=== PATIENT | male | born 1965 | race Caucasian/White ===

== ENCOUNTER 2021-01-24 08:51 | Day surgery (SDC) | payer OTHER ==
[2021-01-22 10:29] VITALS: BMI 28.3
[~2021-01-24 08:51] MED LIST: LACTATED RINGERS 1,000 ML IV SCH
[2021-01-24 09:12] VITALS: RESP 16; TEMP 97.5
[2021-01-24] MEDS ORDERED: LIDOCAINE 1% (10MG/ML) FOR IV START INTRADERMA ONE (09:17)
[2021-01-24 09:19] LABS: Glucose,Whole Blood 185 mg/dL (75-99)
[2021-01-24] MEDS ORDERED: LIDOCAINE 1% INJ 10MG/ML (20 ML MDV) ONE (09:53)
[2021-01-24] MEDS ORDERED: PROPOFOL 10 MG/ML 20 ML VIAL IV ONE (09:53)
--- NOTE | 2021-01-24 10:08 | P.PCN ---
Date of Procedure: 01/24/21 Procedure(s) Performed: BRIEF HISTORY: Patient is a 55-year-old pleasant male scheduled for an elective colonoscopy as a part of evaluation of Hemoccult-positive stool. PROCEDURE PERFORMED: Colonoscopy with snare polypectomy. PREOPERATIVE DIAGNOSIS: Occult blood in the stool. IV sedation per Anesthesia. PROCEDURE: After informed consent was obtained, the patient, was brought into the endoscopy unit. IV sedation was administered by Anesthesia under continuous monitoring. Digital rectal examination was normal. Initially the Olympus CF-160 flexible video colonoscope was then inserted in the rectum, gradually advanced into the cecum without any difficulty. Careful examination was performed as the scope was gradually being withdrawn. Ileocecal valve and the appendiceal orifice were visualized and appeared normal. Prep was excellent. Mucosa of the cecum appeared normal. Ascending colon there was a 5 mm sessile polyp removed by snare polypectomy. In the transverse colon there was a 2 mm polyp removed by snare polypectomy. Rest of the, ascending colon, transverse colon, descending colon, appeared normal. In the sigmoid colon there was a 1 cm polyp removed by snare polypectomy. Scattered sigmoid diverticulosis seen. Rest of the sigmoid colon, and rectum appeared normal. Retroflexion was performed in the rectum and no lesions were seen. The patient tolerated the procedure well. IMPRESSION: 5 mm ascending colon polyp status post polypectomy 2 mm transverse colon polyp status post polypectomy 1 cm; polyp status post polypectomy RECOMMENDATIONS: Findings of this examination were discussed with the patient as well as his family. He was advised to follow with the biopsy results. If the biopsy shows an adenoma he can have a repeat colonoscopy in 3 years
[2021-01-24 10:32] VITALS: BP 115/72; PULSE 91
== END 2021-01-24 10:55 | disposition home or self-care (01) ==
LOC: ORWHC2ENDO 08:51
PROVIDERS: ATTEND Internal Medicine Gastroenterology
DX: D12.3 Benign neoplasm of transverse colon (principal); K63.5 Polyp of colon; K57.30 Diverticulosis of large intestine without perforation or abscess without bleeding; R19.5 Other fecal abnormalities; E11.9 Type 2 diabetes mellitus without complications; Z79.84 Long term (current) use of oral hypoglycemic drugs; Z79.899 Other long term (current) drug therapy; Z87.442 Personal history of urinary calculi; Z88.2 Allergy status to sulfonamides
CPT/HCPCS: 88305; 45385; J2001; J2704

== ENCOUNTER 2021-09-12 08:03 | Day surgery (SDC) | payer OTHER ==
[2021-09-10 13:29] VITALS: BMI 29.2
--- NOTE | 2021-09-11 09:31 | HP ---
HISTORY AND PHYSICAL CHIEF COMPLAINT: Right index finger pain and locking. HISTORY OF PRESENT ILLNESS: Patient is a 56-year-old male who presents with progressive right index finger pain and locking for the past year. He notes it is worse in the morning. He has a difficult time with gripping and grasping. He also notes stiffness. He has tried previous injections with only partial temporary relief. PAST MEDICAL HISTORY: Significant for type 2 diabetes and hypertension. PAST SURGICAL HISTORY: Carpal tunnel release, knee surgery and oral surgery. CURRENT MEDICATIONS: None. ALLERGIES: HE HAS ALLERGIES TO BACTRIM. FAMILY HISTORY: Significant for cancer and liver disease. SOCIAL HISTORY: Significant for previous tobacco use. REVIEW OF SYSTEMS: Sixteen-point review of systems otherwise reviewed and is noncontributory. PHYSICAL EXAMINATION: On examination, patient is approximately 5 foot 11, 204 pounds of endomorphic habitus. HEENT exam is nonfocal. Neck is supple. He is nontender about the right shoulder elbow and wrist. On examination of his right hand, he is tender over the index finger A1 kate with palpable triggering and catching. He has moderate stiffness. He fires the FDP and FDS. His distal neurovascular exam appears intact. IMPRESSION: Right index trigger finger-symptomatic. RECOMMENDATIONS: I talked to the patient at length regarding his condition along with treatment options. At this point, remains quite symptomatic despite conservative measures. After thorough discussion, he opts to proceed with surgery. We will plan to proceed with the right index trigger finger release. We will likely perform that as an outpatient procedure utilizing local anesthetic and IV sedation. MMODL / IJN: [id number] /
[~2021-09-12 08:03] MED LIST changes: +DEXAMETHASONE SOD PHOSPHATE 4 MG/ML 1 ML VIAL IV ONE; +HYDROmorphone 0.5 MG/0.5 ML SYRINGE IVP PRN; +MIDAZOLAM 2 MG/2 ML VIAL IV PRN; +ONDANSETRON 4 MG/2 ML VIAL IVP ONE; +SCOPOLAMINE 1.5MG/72HR PATCH TRANSDERM ONE
[2021-09-12 08:21] VITALS: TEMP 97.7
[2021-09-12 08:31] LABS: Glucose,Whole Blood 230 mg/dL (75-99)
[2021-09-12] MEDS ORDERED: PROPOFOL 10 MG/ML 20 ML VIAL IV ONE (09:37)
[2021-09-12] MEDS ORDERED: .fentaNYL (PF) 50 MCG/ML 2 ML AMP ONE (09:37)
[2021-09-12] MEDS ORDERED: MIDAZOLAM 2 MG/2 ML VIAL ONE (09:37)
[2021-09-12] MEDS ORDERED: BUPIVACAINE (PF) 0.25% 30 ML VIAL SQ ONE (09:50)
--- NOTE | 2021-09-12 10:06 | P.OP ---
Date of Procedure: 09/12/21 Preoperative Diagnosis: Symptomatic right index trigger finger Postoperative Diagnosis: Same Procedure(s) Performed: Right index trigger finger release Anesthesia: MAC, local Surgeon: Eric Nava Estimated Blood Loss (ml): 1 Pathology: none sent Condition: stable Disposition: PACU Indications for Procedure: The patient's a 56-year-old male who presents with progressive right index finger pain and locking despite previous conservative measures. A discussion of the risks and benefits of operative intervention versus continued conservative measures was made with patient. He opted to proceed with surgery. Operative risks to include infection, neurovascular injury, possible recurrence need for subsequent procedures was discussed. Informed consent was obtained. Operative Findings: As below Description of Procedure: The patient was brought to the operating room, and after induction of IV sedation the right upper extremity was prepped and draped in normal fashion. The proposed incision site was outlined along the volar aspect the right hand over the index finger proximal to the MCP joint crease. 5 mL of quarter percent plain Marcaine was injected. The tourniquet was inflated to 250 mm marker. The 1 cm incision was then made. Skin was incised sharply. Subcu change tissues were divided bluntly. The neurovascular bundles were gently retracted. The A1 kate of the index finger flexor sheath was identified and transected under direct visualization proximally and distally. The tendon was then mobilized. I felt there was adequate release. The wound was irrigated normal saline. The skin was reprepped with simple 3-0 nylon suture. A sterile dressing was applied. The tourniquet was deflated less than 10 minutes total tourniquet time. The patient was awoken from sedation and transferred to recovery room in good condition. Blood loss was estimated at 1 mL. No complications were incurred. Sponge and needle counts were correct at the of end the case.
[2021-09-12 10:14] VITALS: RESP 16
[2021-09-12 10:34] VITALS: BP 113/81; PULSE 79
== END 2021-09-12 10:45 | disposition home or self-care (01) ==
LOC: OR 08:03
PROVIDERS: ATTEND Orthopaedic Surgery
DX: M65.321 Trigger finger, right index finger (principal); E11.9 Type 2 diabetes mellitus without complications; I10 Essential (primary) hypertension; Z98.890 Other specified postprocedural states; Z88.2 Allergy status to sulfonamides; Z83.79 Family history of other diseases of the digestive system; Z80.9 Family history of malignant neoplasm, unspecified; Z87.891 Personal history of nicotine dependence; E78.5 Hyperlipidemia, unspecified; K21.9 Gastro-esophageal reflux disease without esophagitis; Z79.84 Long term (current) use of oral hypoglycemic drugs; Z79.1 Long term (current) use of non-steroidal anti-inflammatories (NSAID); Z79.899 Other long term (current) drug therapy
CPT/HCPCS: 26055; J2250; J0690; J2405; J3010; J2704

== ENCOUNTER 2022-07-13 16:05 | Emergency (ER) | payer OTHER ==
[2022-07-13 17:10] VITALS: BP 159/94; PULSE 76; RESP 18; TEMP 97.6
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
--- NOTE | 2022-07-13 18:07 | XR ---
EXAMINATION TYPE: XR clavicle RT DATE OF EXAM: 07/13/2022 COMPARISON: NONE HISTORY: Pain TECHNIQUE: 2 view FINDINGS: There is midshaft fracture of the right clavicle with comminution. There is overriding of t he fragments approximately 4 cm. The AC joint is anatomic. Scapula appears intact. IMPRESSION: Subacute displaced clavicle fracture with overriding fragments.
[2022-07-13] MEDS ORDERED: KETOROLAC 15 MG/ML 1 ML VIAL IM STA (19:03)
[2022-07-13] MEDS ORDERED: HYDROmorphone 1 MG/ML 1 ML SYRINGE IM STA (19:03)
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
[2022-07-13] MEDS ORDERED: ACET/COD 300 MG/30 MG STARTER PACK 6 TAB BTL PO STA (20:03)
== END 2022-07-13 20:17 | disposition home or self-care (01) ==
LOC: EC 16:05
DX: S42.001A Fracture of unspecified part of right clavicle, initial encounter for closed fracture (principal); S22.39XA Fracture of one rib, unspecified side, initial encounter for closed fracture; E11.9 Type 2 diabetes mellitus without complications; K21.9 Gastro-esophageal reflux disease without esophagitis; E78.5 Hyperlipidemia, unspecified; I10 Essential (primary) hypertension; Z87.891 Personal history of nicotine dependence; Z88.2 Allergy status to sulfonamides; Z79.84 Long term (current) use of oral hypoglycemic drugs; V18.0XXA Pedal cycle driver injured in noncollision transport accident in nontraffic accident, initial encounter
CPT/HCPCS: 73000; 71046; 99284; 96372 ×2; J1170; J1885

== ENCOUNTER 2022-07-27 14:00 | Day surgery (SDC) | payer OTHER ==
[2022-07-24 10:10] VITALS: BMI 29.2
[2022-07-27 14:37] LABS: Glucose,Whole Blood 144 mg/dL (70-110)
[2022-07-27 14:42] VITALS: RESP 16
[2022-07-27] MEDS ORDERED: LACTATED RINGERS 1,000 ML IV ONE (14:42)
[2022-07-27 14:52] LABS: Basophils # (A) 0.1 k/uL (0-0.2); Basophils % (A) 1 %; Eosinophils # (A) 0.1 k/uL (0-0.7); Eosinophils % (A) 2 %; HCT 43.1 % (39.0-53.0); HGB 15.1 gm/dL (13.0-17.5); Lymphocytes # (A) 1.6 k/uL (1.0-4.8); Lymphocytes % (A) 29 %; MCHC 35.1 g/dL (31.0-37.0); MCV 91.2 fL (80.0-100.0); Mean Platelet Volume 7.8; Monocytes # (A) 0.3 k/uL (0-1.0); Monocytes % (A) 5 %; Neutrophils # (A) 3.4 k/uL (1.3-7.7); Neutrophils % (A) 61 %; Platelet Count 351 k/uL (150-450); RBC 4.72 m/uL (4.30-5.90); RDW 12.2 % (11.5-15.5); WBC 5.7 k/uL (3.8-10.6)
[2022-07-27] MEDS ORDERED: ONDANSETRON 4 MG/2 ML VIAL ONE (14:56)
[2022-07-27] MEDS ORDERED: DEXAMETHASONE SOD PHOSPHATE 4 MG/ML 1 ML VIAL IVP ONE (15:00)
[2022-07-27] MEDS ORDERED: ONDANSETRON 4 MG/2 ML VIAL IVP ONE (15:01)
[2022-07-27] MEDS ORDERED: MIDAZOLAM 2 MG/2 ML VIAL IVP ONE (15:09)
[2022-07-27] MEDS ORDERED: fentaNYL (PF) 50 MCG/ML 2 ML AMP IVP ONE (15:10)
--- NOTE | 2022-07-27 15:27 | P.ANPRN ---
Procedure Note - Anesthesia - Nerve Block Performed Right Superficial Cervical Plexus Block Single Time Out Performed: Yes Date of Procedure: 07/27/22 Procedure Start Time: 15:08 Procedure Stop Time: 15:13 Location of Patient: PreOp Indication: Requested by Surgeon Specifically requested for management of pain by DrAkila: Nathan Yao Sedation Type: Sedate with meaningful contact maintained Preparation: Sterile Prep Position: Supine Needle Types: Pajunk Needle Gauge: 21 Ultrasound used to visualize needle placement: Yes Ultrasound used to observe medication spread: Yes Injectate: 0.5% Ropivacaine (see comment for volume) (10 ml + 10 ml NS +4 mg dexamethasone) Blood Aspirated: No Pain Paresthesia on Injection Noted: No Resistance on Injection: Normal Image Stored and Saved: Yes Events: Uneventful and Well Tolerated
[2022-07-27 16:24] LABS: Potassium 4.2 mmol/L (3.5-5.1)
[2022-07-27] MEDS ORDERED: LIDOCAINE 2% INJ 20 MG/ML (2 ML VIAL) ONE (17:07)
[2022-07-27] MEDS ORDERED: HYDROmorphone (PF) 1 MG/ML ONE (17:07)
[2022-07-27] MEDS ORDERED: ROCURONIUM 10 MG/ML (5 ML VIAL) IV ONE (17:07)
[2022-07-27] MEDS ORDERED: ROPIVACAINE 5 MG/ML 30 ML VIAL ONE (17:07)
[2022-07-27] MEDS ORDERED: NEOSTIGMINE 1 MG/ML 10 ML VIAL ONE (17:07)
[2022-07-27] MEDS ORDERED: SUCCINYLCHOLINE CHLORIDE 200 MG/10 ML VIAL IV ONE (17:07)
[2022-07-27] MEDS ORDERED: fentaNYL (PF) 50 MCG/ML 2 ML AMP ONE (17:07)
[2022-07-27] MEDS ORDERED: MIDAZOLAM 2 MG/2 ML VIAL ONE (17:07)
[2022-07-27] MEDS ORDERED: PROPOFOL 10 MG/ML 20 ML VIAL IV ONE (17:07)
[2022-07-27] MEDS ORDERED: GLYCOPYRROLATE 0.2 MG/ML 2 ML VIAL ONE (17:07)
[2022-07-27] MEDS ORDERED: SODIUM CHLORIDE 0.9% (PF) 10 ML VIAL ONE (17:07)
[2022-07-27] MEDS ORDERED: DEXAMETHASONE SOD PHOSPHATE 4 MG/ML 1 ML VIAL ONE (17:07)
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
[2022-07-27 19:32] VITALS: TEMP 96.8
[2022-07-27] MEDS ORDERED: HYDROmorphone 1 MG/ML 1 ML SYRINGE IVP PRN (19:38)
[2022-07-27] MEDS ORDERED: HYDROmorphone 0.5 MG/0.5 ML SYRINGE IVP PRN ×2 (19:38)
[2022-07-27] MEDS ORDERED: hydrOXYzine pamoate 25 MG CAP PO PRN (19:38)
[2022-07-27] MEDS ORDERED: HYDROmorphone 0.5 MG/0.5 ML SYRINGE IVP ONE ×3 (19:38→20:16)
[2022-07-27] MEDS ORDERED: SENNOSIDES-DOCUSATE SODIUM 1 EACH TAB PO PRN (19:38)
[2022-07-27] MEDS ORDERED: oxyCODONE-APAP 5-325MG 1 EACH TAB PO PRN (19:41)
[2022-07-27] MEDS ORDERED: KETOROLAC 15 MG/ML 1 ML VIAL IVP ONE ×2 (20:03)
[2022-07-27] MEDS ORDERED: ROPIVACAINE 5 MG/ML 30 ML VIAL MISCELLANE ONE (21:00)
[2022-07-27 21:50] LABS: Glucose,Whole Blood 265 mg/dL (70-110)
[2022-07-27 22:22] VITALS: BP 171/90; PULSE 100
--- NOTE | 2022-07-28 07:18 | XR ---
Intraoperative/procedural fluoroscopic services were provided for ORIF right clavicle. Total fluorosc opy time is 21.3 seconds with a total of 3 submitted images to PACS. Please see the operative note fo r further details.
== END 2022-07-27 22:22 | disposition home or self-care (01) ==
LOC: OR 14:00
PROVIDERS: ATTEND Orthopaedic Surgery
DX: S42.021A Displaced fracture of shaft of right clavicle, initial encounter for closed fracture (principal); G89.18 Other acute postprocedural pain; I10 Essential (primary) hypertension; E78.5 Hyperlipidemia, unspecified; Z87.891 Personal history of nicotine dependence; E11.9 Type 2 diabetes mellitus without complications; J44.9 Chronic obstructive pulmonary disease, unspecified; G47.33 Obstructive sleep apnea (adult) (pediatric); K21.9 Gastro-esophageal reflux disease without esophagitis; N20.0 Calculus of kidney; Z88.2 Allergy status to sulfonamides; Z79.899 Other long term (current) drug therapy
CPT/HCPCS: 23515; 80051; 85025; 73000; 64999; J2250; J1100; J0690; J2405; J3010; J2795; J1885; J1170; 64415; 76942

== ENCOUNTER 2022-09-04 14:17 | Emergency (ER) | payer OTHER ==
[2022-09-04 14:25] VITALS: BP 148/96; PULSE 91; RESP 20; TEMP 98.4
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
[2022-09-04] MEDS ORDERED: KETOROLAC 15 MG/ML 1 ML VIAL IM STA (16:05)
[2022-09-04] MEDS ORDERED: HYDROcodone/APAP 5-325MG 1 EACH TAB PO STA (16:05)
[2022-09-04] MEDS ORDERED: LIDOCAINE 1% INJ 10MG/ML (30 ML VIAL-PF) SQ ONE (16:06)
[2022-09-04] MEDS ORDERED: BACITRACIN OINT 1 EACH PACKET TOPICAL ONE (16:06)
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
[2022-09-04] MEDS ORDERED: ACET/COD 300 MG/30 MG STARTER PACK 6 TAB BTL PO STA (17:34)
[2022-09-04] MEDS ORDERED: CEPHALEXIN 500 MG CAP PO STA (17:34)
== END 2022-09-04 17:47 | disposition home or self-care (01) ==
LOC: EC 14:17
DX: S61.212A Laceration without foreign body of right middle finger without damage to nail, initial encounter (principal); J44.9 Chronic obstructive pulmonary disease, unspecified; E11.9 Type 2 diabetes mellitus without complications; I10 Essential (primary) hypertension; K21.9 Gastro-esophageal reflux disease without esophagitis; Z87.891 Personal history of nicotine dependence; Z88.2 Allergy status to sulfonamides; Z79.84 Long term (current) use of oral hypoglycemic drugs; Z79.899 Other long term (current) drug therapy; W23.1XXA Caught, crushed, jammed, or pinched between stationary objects, initial encounter
CPT/HCPCS: 73130; 99283; 96372; 12002; J2001; J1885

== ENCOUNTER → 2023-08-16 | Outpatient (CLI) | payer OTHER ==
--- NOTE | 2023-08-16 19:36 | MR ---
EXAMINATION TYPE: MR cervical spine wo con DATE OF EXAM: 08/16/2023 7:27 PM CLINICAL INDICATION:Male, 58 years old with history of M54.2 CERVICALGIA; PHH, Neck pain, left hand n umbness COMPARISON: 07/05/2023. TECHNIQUE: Multi planar, multi sequence imaging was performed utilizing: T1-weighted, T2-weighted, an d turbo inversion recovery imaging of the cervical spine. IV Contrast: cc (none if empty) FINDINGS: Alignment: The cervical vertebral bodies have preserved heights. Alignment is within normal limits gi blaine patient positioning. Bones: Multilevel degeneration changes throughout the spine worse at C5-C6 and C6-C7. Cord: Abnormal cord signal at the level of C5-C6 asymmetry left and posterior. Series 701 image 26. Discs: Multilevel disc desiccation is present. C2-C3: No significant disc pathology. The spinal canal is patent. No neural foraminal stenosis. C3-C4: No significant disc pathology. The spinal canal is patent. No neural foraminal stenosis. C4-C5: No significant disc pathology. The spinal canal is patent. Bilateral facet and uncovertebral joint arthropathy are present with mild bilateral neural foraminal stenosis. C5-C6: Disc osteophyte can complex with severe spinal canal stenosis and cord signal change. Facet hilda int uncovertebral joint arthropathy with severe right and moderate to severe left neural foraminal st enosis. C6-C7: A disc osteophyte complex is present with moderate spinal canal stenosis. No neural foraminal stenosis. C7-T1: No significant disc pathology. The spinal canal is patent. No neural foraminal stenosis. Other: None. IMPRESSION: Through C5-C6 severe spinal canal stenosis with abnormal cord signal. Additionally there is severe ri ght and moderate severe left neural foraminal stenosis. Cord signal abnormality in the posterior left aspect of the spinal cord. Ordering provider was not in the power scribe communication system to be notified.
== END | disposition home or self-care (01) ==
LOC: RADMRIMAIN 18:12
PROVIDERS: ATTEND Orthopaedic Surgery Hand Surgery
DX: M48.02 Spinal stenosis, cervical region (principal); M99.71 Connective tissue and disc stenosis of intervertebral foramina of cervical region
CPT/HCPCS: 72141

== ENCOUNTER → 2024-01-13 | Outpatient (CLI) | payer OTHER ==
[2024-01-13 15:57] LABS: Basophils # (A) 0.06 X 10*3/uL (0.00-0.10); Basophils % (A) 1.2 %; Eosinophils # (A) 0.13 X 10*3/uL (0.04-0.35); Eosinophils % (A) 2.5 %; HCT 48.9 % (39.6-50.0); HGB 16.7 g/dL (13.0-17.0); Lymphocytes # (A) 1.55 X 10*3/uL (0.90-5.00); Lymphocytes % (A) 30.2 %; MCH 30.9 pg (27.0-32.0); MCHC 34.2 g/dL (32.0-37.0); MCV 90.6 FL (80.0-97.0); Mean Platelet Volume 11.6 FL (9.5-12.2); Monocytes # (A) 0.35 X 10*3/uL (0.20-1.00); Monocytes % (A) 6.8 %; NRBC Per 100 WBC 0 X 10*3/uL (0.00-0.01); Neutrophils # (A) 3.02 X 10*3/uL (1.80-7.70); Neutrophils % (A) 58.9 %; Platelet Count 215 X 10*3/uL (140-440); RBC Morphology Normal (Normal); RDW 11.9 % (11.5-14.5); WBC 5.13 X 10*3/uL (4.50-10.00)
[2024-01-13 15:58] LABS: ALT 15 U/L (10-49); AST 18 U/L (14-35); Albumin 4.3 g/dL (3.8-4.9); Albumin/Globulin Ratio 1.65 Ratio (1.60-3.17); Alkaline Phosphatase 101 U/L (41-126); Calcium 9.5 mg/dL (8.7-10.3); Carbon Dioxide 23.1 mmol/L (21.6-31.8); Chloride 100 mmol/L (96-109); Chol/HDL Ratio 5.71 Ratio; Globulin 2.6 g/dL (1.6-3.3); Glucose 283 mg/dL (70-110); LDL Cholesterol,Calculated 187.8 mg/dL (0.0-131.0); Potassium 4.7 mmol/L (3.5-5.5); Sodium 135 mmol/L (135-145); T4, Free (Free Thyroxine) 0.97 ng/dL (0.80-1.80); Total Bilirubin 0.3 mg/dL (0.3-1.2); Total Protein 6.9 g/dL (6.2-8.2)
[2024-01-13 16:09] LABS: INR <0.93 sec (0.93-1.11); Prothrombin Time 9.8 sec (9.9-11.9)
[2024-01-13 16:16] LABS: Appearance,Urine Clear (Clear); Bilirubin,Urine Negative (Negative); Blood,Urine Negative (Negative); Color,Urine Yellow (Yellow); Ketones,Urine Negative (Negative); Nitrite,Urine Negative (Negative); PH, Urine 7.5; Specific Gravity,Urine 1.028 (1.001-1.030); Urobilinogen,Urine 0.2 E.U./DL
[2024-01-13 20:46] LABS: Urine Creatinine 58.6 mg/dL (39.0-259.0)
[2024-01-14 21:14] LABS: Vitamin D, 1, 25-Dihydroxy 64 pg/mL (20 - 79)
== END | disposition home or self-care (01) ==
LOC: LABWHC1 09:54
PROVIDERS: ATTEND Family Medicine
DX: I10 Essential (primary) hypertension (principal); E11.65 Type 2 diabetes mellitus with hyperglycemia; E78.5 Hyperlipidemia, unspecified; E55.9 Vitamin D deficiency, unspecified; N20.0 Calculus of kidney; R35.1 Nocturia
CPT/HCPCS: 36415; 80053; 80061; 81003; 82043; 82570; 82652; 84153; 84439; 84443; 85025; 85610

== ENCOUNTER → 2024-02-16 | Outpatient (CLI) | payer OTHER | END | disposition home or self-care (01) | LOC: LABPAT 15:51 | PROVIDERS: ATTEND Orthopaedic Surgery | DX: Z01.812 Encounter for preprocedural laboratory examination (principal); Z22.322 Carrier or suspected carrier of Methicillin resistant Staphylococcus aureus; M54.2 Cervicalgia; M54.12 Radiculopathy, cervical region | CPT/HCPCS: 86850; 86900; 86901; 87070 ==

== ENCOUNTER 2024-02-24 05:45 | Day surgery (SDC) | payer OTHER ==
[2024-02-17 17:44] VITALS: BMI 30.4
[~2024-02-24 05:45] MED LIST changes: -DEXAMETHASONE SOD PHOSPHATE 4 MG/ML 1 ML VIAL IV ONE; -HYDROmorphone 0.5 MG/0.5 ML SYRINGE IVP PRN; -LACTATED RINGERS 1,000 ML IV SCH; +LIDOCAINE 1% (10MG/ML) FOR IV START INTRADERMA PRN; -MIDAZOLAM 2 MG/2 ML VIAL IV PRN; -ONDANSETRON 4 MG/2 ML VIAL IVP ONE; +ONDANSETRON 4 MG/2 ML VIAL IVP PRN; -SCOPOLAMINE 1.5MG/72HR PATCH TRANSDERM ONE; +TRANEXAMIC 1,000 MG/100ML-NACL 1,000 MG in SALINE 1 100ML.BAG IVPB PRN; +droPERidol 5 MG/2 ML VIAL IVP ONE
[2024-02-24 06:40] LABS: Glucose,Whole Blood 205 mg/dL (70-110)
[2024-02-24] MEDS: LACTATED RINGERS 1,000 ML IV SCH (06:42)
[2024-02-24] MEDS: DEXAMETHASONE SOD PHOSPHATE 4 MG/ML 1 ML VIAL IV ONE (06:48)
[2024-02-24] MEDS: ONDANSETRON 4 MG/2 ML VIAL IVP ONE (06:48)
[2024-02-24] MEDS: GABAPENTIN 300 MG CAP PO PRN (06:50)
[2024-02-24] MEDS: ACETAMINOPHEN TAB 500 MG TAB PO PRN (06:50)
[2024-02-24] MEDS: SCOPOLAMINE 1 MG/72 HR PATCH TRANSDERM ONE (06:51)
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
[2024-02-24] MEDS: diphenhydrAMINE 50 MG/ML 1 ML VIAL ONE (07:10)
[2024-02-24] MEDS ORDERED: KETAMINE HCL IN 0.9 % NACL 50 MG/5 ML SYRINGE ONE (07:30)
[2024-02-24] MEDS ORDERED: MIDAZOLAM 2 MG/2 ML VIAL ONE (07:30)
[2024-02-24] MEDS ORDERED: LIDOCAINE 1% INJ 10MG/ML (20 ML MDV) ONE (07:30)
[2024-02-24] MEDS ORDERED: NEOSTIGMINE 1 MG/ML 10 ML VIAL ONE (07:30)
[2024-02-24] MEDS ORDERED: ROCURONIUM 10 MG/ML (5 ML VIAL) IV ONE (07:30)
[2024-02-24] MEDS ORDERED: SUCCINYLCHOLINE CHLORIDE 200 MG/10 ML VIAL IV ONE (07:30)
[2024-02-24] MEDS ORDERED: GLYCOPYRROLATE 0.2 MG/ML 2 ML VIAL ONE (07:30)
[2024-02-24] MEDS ORDERED: PHENYLEPHRINE 10 MG/ML VIAL ONE (07:30)
[2024-02-24] MEDS ORDERED: PROPOFOL 10 MG/ML 20 ML VIAL IV ONE (07:30)
[2024-02-24] MEDS ORDERED: TRANEXAMIC 1,000 MG/100ML-NACL PREMIX BAG ONE (07:30)
[2024-02-24] MEDS ORDERED: fentaNYL (PF) 50 MCG/ML 2 ML AMP ONE (07:30)
[2024-02-24] MEDS ORDERED: KETOROLAC 30 MG/ML 1 ML VIAL ONE (07:30)
[2024-02-24] MEDS ORDERED: DEXAMETHASONE SOD PHOSPHATE 10 MG/ML 1 ML VIAL ONE (07:30)
[2024-02-24] MEDS: GELATIN SPONGE,ABSORB (LARGE) 1 EACH SPONGE MISCELLANE ONE (08:17)
[2024-02-24] MEDS: THROMBIN (BOVINE) 5,000 UNIT VIAL TOPICAL ONE (08:18)
--- NOTE | 2024-02-24 10:16 | FL ---
EXAMINATION TYPE: FL guidance operating room, XR cervical spine 1V Intraoperative/procedural fluorosc opic services were provided. Total fluoroscopy time is 24.1 seconds with a total of 5 submitted image s to PACS. Please see the operative/procedural note for further details. DAP: 0.49 4 Gycm2
[2024-02-24] MEDS ORDERED: HYDROmorphone 1 MG/ML 1 ML SYRINGE IVP PRN (10:26)
[2024-02-24] MEDS ORDERED: HYDROcodone/APAP 5-325MG 1 EACH TAB PO PRN (10:26)
[2024-02-24] MEDS ORDERED: KETOROLAC 15 MG/ML 1 ML VIAL IVP PRN (10:26)
[2024-02-24] MEDS ORDERED: ONDANSETRON 4 MG/2 ML VIAL IVP PRN (10:26)
[2024-02-24] MEDS ORDERED: CYCLOBENZAPRINE 10 MG TAB PO PRN (10:26)
[2024-02-24] MEDS ORDERED: HYDROcodone/APAP 10-325MG 1 EACH TAB PO PRN (10:26)
[2024-02-24] MEDS ORDERED: HYDROmorphone 0.5 MG/0.5 ML SYRINGE IVP PRN (10:26)
[2024-02-24] MEDS ORDERED: MAGNESIUM HYDROXIDE 2,400 MG/30 ML CUP PO PRN (10:26)
[2024-02-24] MEDS ORDERED: HYDROcodone/APAP 7.5-325MG 1 EACH TAB PO PRN (10:29)
--- NOTE | 2024-02-24 10:33 | P.OP ---
Date of Procedure: 02/24/24 Preoperative Diagnosis: 1. 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 CERVICAL MYELOMALACIA WITH MYELOPATHY 3. BUE RADICULOPATHY 4. BUE WEAKNESS 5. NECK PAIN Postoperative Diagnosis: 1. 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 CERVICAL MYELOMALACIA WITH MYELOPATHY 3. BUE RADICULOPATHY 4. BUE WEAKNESS 5. NECK PAIN Procedure(s) Performed: 1. C5-6 ANTERIOR CERVICAL ARTHRODESIS 2. C6-7 ANTERIOR CERVICAL ARTHRODESIS 3. ANTERIOR INSTRUMENTATION C5-7 4. INSERTION OF BIOMECHANICAL DEVICE C5-6 AND C6-7 USE OF IONM Implants: CARMEN CASCADIA CAGE 9MM 9MM OZARK PLATE 46MM 16MM SCREWS MAGNATOS, AUTOGRAFT Anesthesia: PAMELAA Surgeon: Guero Mullen Visual Developer #1: Edy Maguire (WAS PRESENT AND ASSISTED WITH ALL ASPECTS OF THE CASE FROM POSITION TO CLOSURE) Estimated Blood Loss (ml): 25 IV fluids (ml): 1,200 Urine output (ml): 0 Pathology: none sent Condition: stable Disposition: PACU Indications for Procedure: Mr. Tamayo is presenting for evaluation of neck pain. It was my pleasure to have seen and examined Mr. Tamayo. In our visit today we have had a chance to go over subjective complaints, physical examination findings and treatments including the natural course history without intervention and various interventional options. The patients imaging demonstrates: XRay Cervical multiview (Lateral, Flexion, Extension, AP, Oblique) 6 views taken at [facility] on 08/23/23: - Re-reviewed in office today. Mild to moderate multilevel spondylitic and degenerative changes with straightening of the normal lordosis. Multilevel diminished disc height, most pronounced C5-C7 with foraminal narrowing. Vertebral body heights are preserved. No acute osseous abnormalities. [facility] 08/16/23 [facility]: - Re-reviewed in office today. IMPRESSION: Through C5-C6 severe spinal canal stenosis with abnormal cord signal. Additionally there is severe right and moderate severe left neural foraminal stenosis. Cord signal abnormality in the posterior left aspect of the spinal cord. On physical exam, Mr. Tamayo demonstrates: A burning, ache-like pain throughout the neck that radiates down into the left upper extremity. He notes his left arm pain is associated with numbness and tingling. He notes severe numbness throughout the third, fourth, and fifth digits upon the left hand. The patient states his current symptoms worsen after all activity. He reports experiencing severe sleep disturbances related to his ongoing pain and associated symptoms. I have explained to the patient that as their condition progresses it will cause further neurological deficits and eventual paralysis. Based on the patients imaging, physical exam, and the rapid progression and disabling nature of their symptoms, at this time I recommend surgery in the form of a: C5-7 ACDF. I discussed the risk and benefits of this procedure at length with Mr. Tamayo. The patient agreed to considered pursuing the procedure abovementioned. Prior to surgery, she should follow up with her PCP (Cardio, ID, IM etc) for clearance. Questions were invited and answered, and the patient wishes to proceed as outlined below. Currently, I am recommendin.C5-7 ANTERIOR CERVICAL DISCECOMTY AND FUSION Description of Procedure: C5-7 ACDF The patient was seen and examined in the preoperative area. All preoperative protocols were followed. Informed consent was obtained, risks and benefits of the procedure were discussed at length. Risks including bleeding infection damage to the surrounding tissue and risk of reoperation were discussed with the patient. Risk of anesthesia up to and including was discussed with the patient. These are outlined in the risk review. They were willing to accept these risks and all the risks of surgery. The patient was given a weight-based dose of antibiotics in the form of 2 g Ancef. The patient was seen and evaluated by the anesthesia team who deemed them fit for surgery. The site was marked, the patient was willing to proceed with the procedure. The patient was transferred to the operative suite by the Department of anesthesia. They were then drifted off to sleep by the department anesthesia and GETA was performed. The patient tolerated this well. Cunha catheter was placed by nursing staff, a-traumatically. Once confirmation of lines and ventilation the patient was transferred to a Supine Yves table very carefully. All bony prominences including wrists, elbows, axilla, chest, hips, and thighs, and feet were padded very well. Special attention was paid to the genitalia, and these were padded accordingly. SCDs were placed on bilateral lower extremities and were connected. Arms were well padded and placed at their side thumbs up. Once in position, again we confirmed good ventilation capabil ities and that lines were running appropriately. The patients Cervical spine was then exposed. 1010s were placed outlining the incision site. Standard alcohol was used to clean the incision site and allowed to dry. C-arm was used to bio-monisha the patient and confirm level for incision which was marked with a skin marker. Operative briefing was performed with all teams and everyone in agreement to proceed. The patient was then prepped and draped in a normal sterile fashion. Timeout was then performed, and all parties agreed with the procedure to be performed. Transverse skin incision was then made on the right side of the patient's neck 3 cm and dissection taken down to the platysma which was split transversely. Sub platysma flap was made, and interval identified between SCM and medial structures. Omohyoid was visualized and protected. Blunt dissection taken down to the anterior cervical fascia which was identified. Blunt probe was then placed and lateral image taken which confirmed levels for operation. These levels were then marked with a bovi. Subperiosteal dissection of the longissimus muscles were then done over these levels identifying uncovertebral joints bilaterally. Retractor was then placed deep to these muscles and held in place with a bed arm. Starting at C6-7, [place] pins were placed into C6 and C7 and gentle distraction taken out over the levels. Bridget rongeur used to remove disc material. Operating microscope brought in for visualization. Complete discectomy performed at this level with curette, rongure and pituitary. High speed breana used to remove osteophytes anteriorly and posteriorly until PLL was identified. 6-0 up curette then used to identify the canal and resect the PLL. 2-0 and 3-0 Kerrison used then to remove PLL and disc herniation and performed b/l foraminotomies. Once good decompression was accomplished, meticulous hemostasis was performed. Sizers were then placed under lateral fluoroscopy until the desired height and lordosis. Cage was then selected, packed with autograft and allograft and placed under lateral imaging. Once in good position it was tested and stable. Motors run before and after cage placement were stable. The wound was irrigated, and autograft placed lateral to the cage anteriorly for fusion. [place] pin was then removed from C7 and placed into C5. Gentle distraction taken out over C5-6 now. Complete discectomy done at C5-6 as described including decompression, b/l foraminotomies and PLL resection. Burring of endplates was minimal, osteophytes removed as described. Spacers were then sized and placed under lateral imaging. Cage selected, packed with graft and placed under lateral images. Once in position, meticulous hemostasis performed, and motors remained stable before and after cage placement. AP image confirmed good placement of cages. Wound was irrigated. A separate, non-integrated plate was then selected and sized under lateral image. The plate was then placed with screws. Fixed screws drilled into C7 b/l and screws placed. Then into C6 and finally C5 with variable screws. All locking mechanisms were set, and all screws had good purchase. Final AP and lateral images taken confirmed good placement of hardware and good reduction and restorationism of height. The wound was then irrigated copiously with NSS. Surgicel placed deep in the wound. A deep drain placed out a separate incision and sewed into place. Layered closure then performed with 3-0 Vicryl in the platysma and subQ tissue. 4-0 Strata fix in the subcuticular tissue. The wound was then cleaned, and dried and skin glue placed. Once glue dried on Opifoam was placed. The patient was then transferred back to their hospital bed a-traumatically. The drain continued to hold suction. They were placed in a soft collar. They were then awakened by the department of anesthesia having tolerated the procedure well without complications.
[2024-02-24] MEDS: HYDROmorphone 0.5 MG/0.5 ML SYRINGE IVP PRN (10:37)
[2024-02-24 11:12] VITALS: TEMP 97.2
[2024-02-24] MEDS ORDERED: ACETAMINOPHEN TAB 325 MG TAB PO SCH (12:00)
[2024-02-24] MEDS: KETOROLAC 15 MG/ML 1 ML VIAL IVP ONE (12:33)
[2024-02-24 12:50] LABS: Glucose,Whole Blood 268 mg/dL (70-110)
[2024-02-24] MEDS: INSULIN ASPART (NovoLOG) 100 UNIT/ML VIAL SQ ONE (12:55)
[2024-02-24 13:55] LABS: Glucose,Whole Blood 239 mg/dL (70-110)
[2024-02-24 15:05] VITALS: BP 133/82; PULSE 101; RESP 18
[2024-02-25] MEDS ORDERED: SENNOSIDES-DOCUSATE SODIUM 1 EACH TAB PO SCH (09:00)
== END 2024-02-24 14:58 | disposition home or self-care (01) ==
LOC: OR 05:45 → 4SSUR 10:10 → OR 14:58
PROVIDERS: ATTEND Orthopaedic Surgery
DX: M48.02 Spinal stenosis, cervical region (principal); M47.12 Other spondylosis with myelopathy, cervical region; G95.89 Other specified diseases of spinal cord; I10 Essential (primary) hypertension; E78.5 Hyperlipidemia, unspecified; M19.90 Unspecified osteoarthritis, unspecified site; K21.9 Gastro-esophageal reflux disease without esophagitis; J44.9 Chronic obstructive pulmonary disease, unspecified; E11.9 Type 2 diabetes mellitus without complications; Z87.891 Personal history of nicotine dependence; Z80.1 Family history of malignant neoplasm of trachea, bronchus and lung; Z80.0 Family history of malignant neoplasm of digestive organs; Z79.84 Long term (current) use of oral hypoglycemic drugs; Z98.890 Other specified postprocedural states; Z79.899 Other long term (current) drug therapy
CPT/HCPCS: 72020; 22551; 22552; 22853 ×2; 20937; 22845; L0120; C1713; J2250; J0330; J1200; J1100 ×2; J2710; J0690; J2405; J2001; J3010; J1885 ×2; J2704; J1170; J2371